=== PATIENT | female | born 2000 | race Caucasian/White ===

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

== ENCOUNTER 2024-04-20 19:56 | Emergency (ER) | payer OTHER, SELFPAY ==
[2024-04-20] MEDS ORDERED: Ketorolac Tromethamine 30 MG (1 mL) VIAL ONE (21:09)
== END 2024-04-20 21:26 | disposition home or self-care (01) ==
LOC: MADERS 19:56
DX: S30.0XXA Contusion of lower back and pelvis, initial encounter (principal); W01.0XXA Fall on same level from slipping, tripping and stumbling without subsequent striking against object, initial encounter
CPT/HCPCS: 96372; 99283; J1885